=== PATIENT | male | born 1970 | race Two or more races ===

== ENCOUNTER 2024-07-13 06:45 | Day surgery (SDC) | payer MEDICAID, SELFPAY ==
[2024-07-12 11:10] VITALS: BMI 29.0
[2024-07-13] VITALS (10 sets, daily range): BP systolic 102–169; BP diastolic 67–93; PULSE 73–107; RESP 11–24; TEMP 36.2–36.6; O2SAT 96–100; BMI 28.5
[2024-07-13] MEDS: DiphenhydrAMINE INJ 50 MG/ML VIAL 25 MG IV (07:24)
[2024-07-13] MEDS: MIDAZOLAM INJ 1 MG/ML VIAL 2 ML (ASD USE ONLY) 2 MG IV (07:28)
[2024-07-13] MEDS: fentaNYL CIT INJ 50 mCg/ML AMP 2ML (ASD USE ONLY) IV (07:30)
--- NOTE | 2024-07-13 07:41 | SUR.PHASEII ---
0741: received pt from OR via [employer]. report received from JUSTYN Rdz. pt asleep but able to open eyes when called his name. no s/s of pain or discomfort. no s/s of resp. distress or discomfort.
--- NOTE | 2024-07-13 08:00 | SUR.PHASEII ---
0800: able to drink water without any difficulty.
--- NOTE | 2024-07-13 08:24 | SUR.PHASEII ---
0824: pt discharge to home via wheelchair accompanied by family member. pt alert and oriented x3. denies any pain or discomfort. no s/s of resp. distress or discomfort. discharge instructions given to family member and pt, verbalizes understanding. all belongings brought given back to patient.
== END 2024-07-13 08:24 | disposition home or self-care (01) ==
PROVIDERS: Referring Provider Surgery; Visit Provider Surgery
PROC: 0DBE8ZX Excision of Large Intestine, Via Natural or Artificial Opening Endoscopic, Diagnostic (ICD-10-PCS; CPT 45380; principal; 2024-07-13 07:30)
DX: K64.0 First degree hemorrhoids (principal)
CPT/HCPCS: 45378; J1200; J2250; J3010